=== PATIENT | female | born 2000 | race Two or more races ===

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

== ENCOUNTER 2021-01-25 21:58 | Emergency (ER) | payer MEDICAID ==
[~2021-01-25] VITALS: Ht 157.5 cm; Wt 60.0 kg
--- NOTE | 2021-01-25 22:26 | NUR ---
PT HERE FOR PAINFUL URINATION AND INCREASED FREQUENCY X SEVERAL DAYS. UA SENT TO LAB. PT HAS HX OF UTIS
[2021-01-25 22:47] LABS: HCG UR SG 1.012 (1.003-1.030); MICROSCOPIC AUTO
[2021-01-25] MEDS ORDERED: CEFDINIR 300 MG CAPSULE ONE (23:37)
[2021-01-26] MEDS ORDERED: CEFDINIR 300 MG CAPSULE PO ONE
[2021-01-26 00:26] VITALS: BP 129/76
== END 2021-01-26 00:28 | disposition home or self-care (01) ==
LOC: ED 22:28
DX: N30.01 Acute cystitis with hematuria (principal); M54.5 Low back pain
CPT/HCPCS: 81001; 81025; 87086; 99283